=== PATIENT | female | born 1950 | race Caucasian/White ===

== ENCOUNTER 2016-12-02 11:45 | Day surgery (SDC) | payer MEDICARE, OTHER ==
--- NOTE | ~2016-12-02 | EGD ---
EGD REPORT [facility] 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 Procedure: Pre-Anesthesia Assessment: - ASA Grade Assessment: IV - A patient with severe systemic disease that is a constant threat to life. After obtaining informed consent, the endoscope was passed under direct vision. Throughout the procedure, the patient's blood pressure, pulse, and oxygen saturations were monitored continuously. The GIF [id number] [id number] was introduced through the mouth, and advanced to the second part of duodenum. The upper GI endoscopy was accomplished without difficulty. The patient tolerated the procedure well. Findings: A benign-appearing, intrinsic severe stenosis measuring 2 cm (in length) x 8 mm (inner diameter) was found at the cricopharyngeus and was traversed. A guidewire was placed and the scope was withdrawn. Dilation was performed with a Savary dilator with mild resistance at 39 Fr, mild resistance at 42 Fr, mild resistance at 45 Fr, moderate resistance at 33 Fr and moderate resistance at 36 Fr. The entire examined stomach was normal. The examined duodenum was normal. Impression: - Benign-appearing esophageal stricture. Dilated. - Normal stomach. - Normal examined duodenum. Recommendation: - Observe clinical course. - Repeat EGD in 3 wks. Procedure Code(s): --- Professional --- 69764, Esophagogastroduodenoscopy, flexible, transoral; with insertion of guide wire followed by passage of dilator(s) through esophagus over guide wire EGD REPORT [facility] [address] [id number] NAME: RADHA BISHOP : [birth year] STATUS : REG [facility]#: [id number] AGE: 66 ADM/REG DATE : 12/02/16 MR#: [id number] REPORT SERV DATE: 12/02/16 DICTATED BY: AUBREY POSADA. DATE: 12/02/16 REPORT STATUS : Draft TRANSCRIBED BY: [facility] DATE: 12/02/16 Diagnosis Code(s): --- Professional --- K22.2, Esophageal obstruction CPT copyright 2013 [employer]. All rights reserved. The codes documented in this report are preliminary and upon side sawyer review may be revised to meet current compliance requirements. AUBREY POSADA MD 12/02/2016 1:15 PM This report has been signed electronically. Number of Addenda: 0 Note Initiated On: 12/02/2016 12:21 PM Scope Withdrawal Time 0 hours 0 minutes 0 seconds [address] [id number]
[~2016-12-02 11:45] MED LIST: ADVAIR250 INH; GLUCPH PO; OXYCOD PO; SLEEPING PILL
[2016-12-26] MEDS ORDERED: COMBIVENT RESPIM4 GM INH (12:54)
[2016-12-26] MEDS ORDERED: DUONEB INH (12:55)
[2016-12-26] MEDS ORDERED: PR25 PO (12:57)
== END 2016-12-02 23:59 | disposition home or self-care (01) ==
LOC: DMU 11:45
PROVIDERS: Internal Medicine Gastroenterology
PROC: 0D757ZZ Dilation of Esophagus, Via Natural or Artificial Opening (ICD-10-PCS; principal; 2016-12-02 13:00)
DX: K22.2 Esophageal obstruction (principal); R25.1 Tremor, unspecified; C14.0 Malignant neoplasm of pharynx, unspecified; I10 Essential (primary) hypertension; Z95.5 Presence of coronary angioplasty implant and graft; I11.0 Hypertensive heart disease with heart failure; I50.9 Heart failure, unspecified; E11.9 Type 2 diabetes mellitus without complications; D64.9 Anemia, unspecified; Z79.899 Other long term (current) drug therapy; Z79.84 Long term (current) use of oral hypoglycemic drugs; Z79.891 Long term (current) use of opiate analgesic; Z88.0 Allergy status to penicillin; Z88.2 Allergy status to sulfonamides
CPT/HCPCS: 82962

== ENCOUNTER 2016-12-30 11:09 | Day surgery (SDC) | payer MEDICARE, OTHER ==
--- NOTE | ~2016-12-30 | EGD ---
EGD REPORT [facility] 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 Procedure: Pre-Anesthesia Assessment: - ASA Grade Assessment: III - A patient with severe systemic disease. After obtaining informed consent, the endoscope was passed under direct vision. Throughout the procedure, the patient's blood pressure, pulse, and oxygen saturations were monitored continuously. The GIF H190 [id number] was introduced through the mouth, and advanced to the second part of duodenum. The upper GI endoscopy was accomplished without difficulty. The patient tolerated the procedure well. Findings: A benign-appearing, intrinsic moderate stenosis measuring 2 cm (in length) x 9 mm (inner diameter) was found just distal to the cricopharyngeus and was traversed. Endoscopically, it is improved. A guidewire was placed and the scope was withdrawn. Dilation was performed with a Savary dilator with mild resistance at 33 Fr, mild resistance at 39 Fr and mild resistance at 45 Fr. A small hiatus hernia was present. The examined duodenum was normal. Impression: - Benign-appearing esophageal stricture. Dilated. - Hiatus hernia. - Normal examined duodenum. Recommendation: - Liquids today and soft mechanical diet thereafter. - Call if dysphagia worsens in the future. Procedure Code(s): --- Professional --- 57850, Esophagogastroduodenoscopy, flexible, transoral; with insertion of guide wire followed by passage of dilator(s) through esophagus over guide wire EGD REPORT [facility] [address] [place]. [address] NAME: RADHA BISHOP : [birth year] STATUS : REG [facility]#: [id number] AGE: 66 ADM/REG DATE : 12/30/16 MR#: [id number] REPORT SERV DATE: 12/30/16 DICTATED BY: AUBREY POSADA. DATE: 12/30/16 REPORT STATUS : Draft TRANSCRIBED BY: [facility] DATE: 12/30/16 Diagnosis Code(s): --- Professional --- K22.2, Esophageal obstruction K44.9, Diaphragmatic hernia without obstruction or gangrene CPT copyright 2013 [employer]. All rights reserved. The codes documented in this report are preliminary and upon operator command support systems review may be revised to meet current compliance requirements. AUBREY POSADA MD 12/30/2016 1:02 PM This report has been signed electronically. Number of Addenda: 0 Note Initiated On: 12/30/2016 12:42 PM Scope Withdrawal Time 0 hours 0 minutes 0 seconds [id number] [place] [address]
[~2016-12-30 11:09] MED LIST changes: +COMBIVENT RESPIM4 GM INH; +DUONEB INH; +PR25 PO
== END 2016-12-30 23:59 | disposition home or self-care (01) ==
LOC: DMU 11:09
PROVIDERS: Internal Medicine Gastroenterology
PROC: 0D758ZZ Dilation of Esophagus, Via Natural or Artificial Opening Endoscopic (ICD-10-PCS; principal; 2016-12-30 12:30)
DX: K22.2 Esophageal obstruction (principal); K44.9 Diaphragmatic hernia without obstruction or gangrene; J44.9 Chronic obstructive pulmonary disease, unspecified; J45.909 Unspecified asthma, uncomplicated; I25.10 Atherosclerotic heart disease of native coronary artery without angina pectoris; E11.9 Type 2 diabetes mellitus without complications; Z95.1 Presence of aortocoronary bypass graft; Z88.0 Allergy status to penicillin; Z88.2 Allergy status to sulfonamides
CPT/HCPCS: 82962; A9270-GY